=== PATIENT | female | born 1980 | race Caucasian/White ===

== ENCOUNTER → 2017-10-15 | Outpatient (CLI) | payer OTHER ==
[~2017-10-15] MED LIST: DIAZ5 PO; HYDACE5 PO; IBUP400 PO; Keflex500 MG PO; MULVITMINE PO; Mobic15 MG PO; OMEP40CA12 PO; OXYACE5T PO; Vistaril25 MG PO
== END ==
LOC: LAB SRC 13:04
DX: J02.9 Acute pharyngitis, unspecified (principal)
CPT/HCPCS: 87070

== ENCOUNTER 2017-11-15 16:38 | Emergency (ER) | payer OTHER ==
[~2017-11-15] VITALS: Ht 170.2 cm; Wt 59.0 kg
[~2017-11-15 16:38] MED LIST changes: -Keflex500 MG PO; -Mobic15 MG PO
[2017-11-15] MEDS ORDERED: Mobic15 MG PO (17:23)
[2017-11-15] MEDS ORDERED: Keflex500 MG PO (17:50)
== END 2017-11-15 17:50 | disposition home or self-care (01) ==
LOC: ER 16:38
DX: S60.212A Contusion of left wrist, initial encounter (principal); S60.211A Contusion of right wrist, initial encounter; F17.210 Nicotine dependence, cigarettes, uncomplicated; W01.0XXA Fall on same level from slipping, tripping and stumbling without subsequent striking against object, initial encounter
CPT/HCPCS: 73110; 99283

== ENCOUNTER → 2022-08-04 | Outpatient (CLI) | payer MEDICARE, OTHER ==
[~2022-08-04] MED LIST changes: +Keflex500 MG PO; +Mobic15 MG PO
== END | disposition home or self-care (01) ==
DX: O09.93 Supervision of high risk pregnancy, unspecified, third trimester (principal)

== ENCOUNTER 2022-09-04 01:12 | Inpatient (IN) | payer MEDICARE, OTHER ==
[~2022-09-04] VITALS: Ht 170.2 cm; Wt 75.0 kg
[2022-09-04 04:39] LABS: BASOPHILS ABSOLUTE AUTO 0.04 K/mm3 (0.00-0.23); BASOPHILS PERCENT AUTO 0 % (0-2); EOSINOPHILS ABSOLUTE AUTO 0.09 K/mm3 (0.00-0.68); EOSINOPHILS PERCENT AUTO 1 % (0-6); Hematocrit 37.4 % (33.0-51.0); Hemoglobin 13.5 g/dL (11.5-16.0); IMMATURE GRAN ABSOLUTE AUTO 0.05 K/mm3 (0.00-0.10); IMMATURE GRAN PERCENT AUTO 0 % (0-1); LYMPHOCYTES ABSOLUTE AUTO 2.72 K/mm3 (0.84-5.20); LYMPHOCYTES PERCENT AUTO 21 % (21-46); MONOCYTES ABSOLUTE AUTO 0.88 K/mm3 (0.16-1.47); MONOCYTES PERCENT AUTO 7 % (4-13); Mean Corpuscular HGB 35.3 pg (26.0-34.0); Mean Corpuscular HGB Conc 36.1 g/dL (31.5-36.5); Mean Corpuscular Volume 98 fL (80-100); Mean Platelet Volume 9.1 fL (9.1-12.4); NEUTROPHILS ABSOLUTE AUTO 9.07 K/mm3 (1.96-9.15); NEUTROPHILS PERCENT AUTO 71 % (41-73); Platelet Count 331 K/mm3 (150-400); RDW Coefficient Variation 12.3 % (11.7-14.2); RDW Standard Deviation 44.3 fL (35.1-46.3); Red Blood Cell Count 3.82 M/mm3 (3.80-5.20); White Blood Cell Count 12.85 K/mm3 (4.00-11.30)
--- NOTE | 2022-09-04 09:54 | NUR ---
Spiritual Care Visit Attempted Pt. was breast-feeding and request I return later inthe day.
--- NOTE | 2022-09-04 10:30 | NUR ---
Spirutal Care Visit. Pt is comfort care. Pts. daughter is present and welcomes my visit. Pt. displays evidence of being much more comfortable than when I visited yesterday. Re-established rapport. Other familiy arrived. Will remain avilable to Pt. and family throughout my shift.
--- NOTE | 2022-09-04 12:15 | NUR ---
ASSUMED CARE, PT JUST RETURNED TO ROOM FROM BEING OUTSIDE, DENIES NEED FOR ANY ASSISTANCE AT THIS TIME
--- NOTE | 2022-09-04 16:39 | NUR ---
rept given to Carlos Solitario RN / Marybeth Coelho LPN
--- NOTE | 2022-09-08 14:00 | NUR ---
PT DID NOT COME IN FOR ROUTINE PPFU ON 09/07/22. RN CALLED 09/07 AT 1534, CALL WAS NOT ANSWERED AND NO VOICEMAIL SET UP TO LEAVE MESSAGE. RN CALLED AGAIN 09/08/22 AT 0824, AGAIN NO ANSWER AND NO VOICEMAIL SET UP. PATIENT CALLED BACK AT 1117 AND LEFT A MESSAGE ON RN PHONE. RN RETURNED PHONE CALL 09/08/22 AT 1145, NO ANSWER AND NO VOICEMAIL SET UP. RN CALLED AGAIN 09/08/22 AT 1343, PATIENT ANSWERED DECLINED TO COME IN TODAY FOR PPFU, AGREED TO COME TO [facility] FOR PPFU 09/09/22 AT 1100.
== END 2022-09-05 13:50 | disposition home or self-care (01) | DRG 807 ==
LOC: OBS 01:12 → BC 01:15 → OBS 01:45 → BC 01:48
PROVIDERS: ADMIT Obstetrics & Gynecology
PROC: 10E0XZZ Delivery of Products of Conception, External Approach (ICD-10-PCS; principal; 2022-09-04)
DX: O42.02 Full-term premature rupture of membranes, onset of labor within 24 hours of rupture (principal); Z37.0 Single live birth; O48.0 Post-term pregnancy; O77.0 Labor and delivery complicated by meconium in amniotic fluid; O99.334 Smoking (tobacco) complicating childbirth; F17.210 Nicotine dependence, cigarettes, uncomplicated; O76 Abnormality in fetal heart rate and rhythm complicating labor and delivery; O99.893 Other specified diseases and conditions complicating puerperium; R05.9 Cough, unspecified; Z3A.40 40 weeks gestation of pregnancy
CPT/HCPCS: 36415; 85025; 86850; 86900; 86901; A9270; J2590; J7120

== ENCOUNTER → 2023-07-26 | Outpatient (CLI) | payer MEDICARE, OTHER | LOC: LAB 13:22 → LAB SHORT 13:22 | DX: R87.610 Atypical squamous cells of undetermined significance on cytologic smear of cervix (ASC-US) (principal); R87.810 Cervical high risk human papillomavirus (HPV) DNA test positive | CPT/HCPCS: 88305 ==